=== PATIENT | female | born 1950 | race Caucasian/White ===

== ENCOUNTER 2022-06-15 13:02 | Emergency (ER) | payer OTHER ==
[2022-06-15 13:34] VITALS: BMI 25.2
[2022-06-15] MEDS ORDERED: DIPHTH,PERTUSS(ACELL),TET 0.5 ML DISP.SYRIN IM ONE ×2 (13:39→13:57)
[2022-06-15] MEDS ORDERED: ACETAMINOPHEN 325 MG TABLET (FP) ONE (13:57)
[2022-06-15] MEDS ORDERED: ACETAMINOPHEN 325 MG TABLET (FP) PO ONE (14:00)
[2022-06-15] MEDS ORDERED: ACETAMINOPHEN 500 MG TABLET (FP) PO ONE (14:00)
[2022-06-15 18:18] VITALS: BP 131/62; PULSE 63; RESP 20; TEMP 98.1
== END 2022-06-15 18:17 | disposition home or self-care (01) ==
LOC: JER 13:02
DX: R04.0 Epistaxis (principal); W01.0XXA Fall on same level from slipping, tripping and stumbling without subsequent striking against object, initial encounter
CPT/HCPCS: 70450-TC; 70486-TC; 72125-TC; 90471; 90715; 99285-25